=== PATIENT | female | born 1980 | race African-American/Black ===

== ENCOUNTER 2018-05-31 08:38 | Day surgery (SDC) | payer MEDICARE, MEDICAID ==
[~2018-05-31] VITALS: Ht 180.3 cm; Wt 117.9 kg
--- NOTE | ~2018-05-31 | OP ---
PATIENT NAME: ROXANE RIVERA MEDICAL RECORD: [id number] :76 LOCATION:[facility] ADMISSION DATE: SURGEON: PATO GUTIERREZ MD DATE OF OPERATION: 05/31/2018 PREOPERATIVE DIAGNOSIS: Lumbar spinal stenosis with foraminal stenosis, L4-L5, right. POSTOPERATIVE DIAGNOSIS: Lumbar spinal stenosis with foraminal stenosis, L4-L5, right. PROCEDURES: Lumbar laminotomy, medial facetectomy and foraminotomy L4-L5 right with METRx retractor. SURGEON: Pato Gutierrez MD DESCRIPTION AND TECHNIQUE: After induction of general endotracheal anesthesia, the patient was rolled prone on a Benjamin frame. Lumbar spine was prepped and draped in usual sterile fashion. Fluoroscopic x-ray and spinal needle localized at L4-L5 interspace on the right side. A stab incision was created with #11 blade. Series of dilators were used to advance a METRx retractor to the L4-L5 interspace on the right side. The level was confirmed with fluoroscopic x-ray. A microscope and Midas Norbert drill were used to perform laminotomy, medial facetectomy and foraminotomy at L4-L5 on the right. Hypertrophied ligamentum flavum was removed with Cloward rongeurs. Foraminotomy was carried out as well. The L4 nerve root was explored at the L4 pedicle as well as the transiting L5 nerve root. The disc space was inspected and found to cause no significant nerve root compression. Therefore, no discectomy was performed. Meticulous hemostasis was maintained throughout the wound. The wound was irrigated with copious amounts of Ancef irrigant solution. The METRx retractor was removed. The fascia was closed with 2-0 Vicryl suture. The subdermal layer was closed with interrupted 3-0 Vicryl suture. The skin was closed with gauri. A sterile dressing was applied to the wound. The patient was awakened in good condition and taken to recovery. All counts were reported as correct. Estimated blood loss was minimal. TRANSINT:[id number] Voice Confirmation ID: [id number] DOCUMENT ID: [id number] PATO GUTIERREZ MD at 1842 CC: [id number] DICTATION DATE: 06/17/18 1023 SENIOR DATA SCIENTIST: 06/17/18 1215 [facility] 05/31/18 [facility] [address] [place] [address]
[2018-05-31 09:16] LABS: HEMATOCRIT 37.9 % (36.0-48.0); HEMOGLOBIN 13.1 g/dL (12-16); MCH 29.9 pg (26.0-34.0); MCHC 34.6 g/dL (31.0-37.0); MCV 86.5 fL (80.0-100.0); MEAN PLATELET VOLUME 10.3 fL (7.4-10.4); RBC 4.38 10x6/uL (4.00-5.40); RDW 12.5 % (11.5-14.5); WBC 5.7 10x3/uL (4.8-10.8)
[2018-05-31 09:32] LABS: ANION GAP 9.8 mmol/L (8-16); CALCIUM 9.4 mg/dL (8.5-10.1); POTASSIUM - SERUM 4.8 mmol/L (3.5-5.1)
[2018-05-31] MEDS ORDERED: RESTASIS EYE DR30 EA EACH EYE (09:35)
[2018-05-31] MEDS ORDERED: ZYPREXA10 MG PO (09:36)
[2018-05-31] MEDS ORDERED: HYDROCO/APAP TAB 10- (09:37)
[2018-05-31] MEDS ORDERED: CYMBALTA60 MG PO (09:39)
[2018-05-31] MEDS ORDERED: CLONAZEPAM TAB 2MG (09:40)
[2018-05-31] MEDS ORDERED: AMBIEN10 MG PO (09:40)
[2018-05-31] MEDS ORDERED: ZANAFLEX4 MG PO (09:41)
[2018-05-31] MEDS ORDERED: ALDACTONE25 MG PO (09:42)
[2018-05-31] MEDS ORDERED: K-DUR20 MEQ PO (09:43)
[2018-05-31] MEDS ORDERED: NEURONTIN600 MG (09:44)
[2018-05-31] MEDS ORDERED: CYMBALTA30 MG (09:45)
[2018-05-31] MEDS ORDERED: ZESTRIL40 MG PO (09:45)
[2018-05-31] MEDS ORDERED: MAG-OX 400 MG400 MG PO (09:46)
[2018-05-31 10:01] VITALS: BP 141/89; Ht 180.3 cm; Wt 117.9 kg
[2018-05-31] MEDS ORDERED: HYDROCODONE-APA1 TAB PO (14:37)
== END 2018-05-31 16:45 | disposition home or self-care (01) ==
LOC: D.OPS 08:38 → D.PAN 11:30 → D.OPS 16:45
PROVIDERS: Anesthesiology
DX: M48.061 Spinal stenosis, lumbar region without neurogenic claudication (principal); Z01.812 Encounter for preprocedural laboratory examination